=== PATIENT | female | born 1990 | race Two or more races ===

== ENCOUNTER 2018-11-17 18:49 | Emergency (ER) | payer SELFPAY ==
[2018-11-17 18:57] VITALS: BP 113/76
--- NOTE | 2018-11-17 19:17 | EDPHY ---
H & P Time Seen by Provider: 11/17/18 18:59 HPI/ROS: CHIEF COMPLAINT: Sore throat, URI symptoms x2 weeks HISTORY OF PRESENT ILLNESS: 28-year-old immunocompetent female complaining of URI symptoms, sore throat x2 weeks. She is in town for a conference. She has attempted [id number] remedies with mild improvement symptoms. She is complaining of sore throat, nasal congestion, nonproductive cough. Denies: Chest pain, back pain, abdominal pain, rash, intraoral lesions, chest pain, abdominal pain, nausea, vomiting, fever, chills, flu-like symptoms. PRIMARY CARE PROVIDER: REVIEW OF SYSTEMS: 10 systems reviewed and negative with the exception of the elements mentioned in the history of present illness PAST MEDICAL & SURGICAL HISTORY: No pertinent medical or surgical history SOCIAL HISTORY:Nonsmoker PHYSICAL EXAM (Prior to examination, patient consented to physical exam, hands were washed and my usual and customary physical exam procedures followed) 1) GENERAL: Well-developed, well-nourished, alert and oriented. Appears to be in no acute distress. 2) HEAD: Normocephalic, atraumatic 3) HEENT: Pupils equal, round, reactive to light bilaterally. Sclera anicteric. Nasopharynx, oropharynx, clear, no lesions. Moist Mucous membranes. No lesions. No Koplik's spots. Ears bilaterally with normal tympanic membranes. No evidence of otitis media otitis externa 4) NECK: Full range of motion, no meningeal signs. 5) LUNGS: Clear auscultation bilaterally, no wheezes, no rhonchi, no retractions. 6) HEART: Regular rate and rhythm, no murmur, no heave, no gallop. 7) ABDOMEN: No guarding, no rebound, no focal tenderness, negative McBurney's, negative Sung's, negative Rovsing's, negative peritoneal sign, 8) MUSCULOSKELETAL: Moving all extremities, no focal areas of tenderness, no obvious trauma. No peripheral edema or discoloration. 9) BACK: No CVA tenderness, no midline vertebral tenderness, no fluctuance, no step-off, no obvious trauma, no visual or palpable abnormality. 10) SKIN: No rash, no petechiae. 11) Psychiatric: Patient is oriented X 3, there is no agitation. DIFFERENTIAL DIAGNOSIS: In no particular order, my differential diagnosis includes, but is not limited to, strep pharyngitis, viral pharyngitis, peritonsillar abscess, retropharyngeal abscess or plegmon, mononucleosis, meningitis, Lemierre syndrome. Smoking Status: Never smoked Constitutional: Initial Vital Signs Temperature (C) 37 C 11/17/18 18:53 Heart Rate 81 11/17/18 18:53 Respiratory Rate 16 11/17/18 18:53 Blood Pressure 113/76 11/17/18 18:53 O2 Sat (%) 96 11/17/18 18:53 O2 Delivery Mode Room Air Allergies/Adverse Reactions: iv contrast dye Allergy (Uncoded 11/17/18 18:59) Home Medications: Medication Instructions Recorded Azithromycin [Zithromax] 500 mg PO DAILY #1 tablet 11/17/18 Benzonatate [Tessalon Pearles (RX)] 200 mg PO TID PRN #15 cap 11/17/18 Ipratropium 0.06% Nasal [Atrovent 2 sprays EACHNARE QID #1 mdi 11/17/18 0.06% Nasal (RX)] MDM/Departure - MDM ED Course/Re-evaluation: Given the longevity the patient's symptoms I think a trial of antibiotics is indicated at this time. Doubt epiglottitis. Doubt measles. Doubt deep space infection or peritonsillar abscess or phlegmon. I do not think that imaging studies indicated at this time. I Think the patient can be safely discharged. She feels comfortable being discharged. Patient feels comfortable being discharged. All questions and concerns addressed by myself. Patient given my usual and customary discharge precautions and instructions regarding their clinical impression. Care of patient under supervision of primary supervising physician Dr Kessler - Kaylene Disposition: Home, Routine, Self-Care Clinical Impression: Pharyngitis Qualifiers: Pharyngitis/tonsillitis etiology: unspecified etiology Qualified Code(s): J02.9 - Acute pharyngitis, unspecified Upper respiratory infection Qualifiers: URI type: unspecified URI Qualified Code(s): J06.9 - Acute upper respiratory infection, unspecified Condition: Good Instructions: Azithromycin (By mouth), Pharyngitis (ED), Upper Respiratory Infection (ED) Additional Instructions: . Return to the emergency department immediately for change in breathing habits , change in voice, change in swallowing habits, change in mental status, or any other symptoms that concern you. Prescriptions: Azithromycin [Zithromax] 500 mg PO DAILY #1 tablet Benzonatate [Tessalon Pearles (RX)] 200 mg PO TID PRN #15 cap PRN Reason: Cough, Moderate Ipratropium 0.06% Nasal [Atrovent 0.06% Nasal (RX)] 2 sprays EACHNARE QID #1 mdi Referrals: Nikolay Fuller MD [Medical Doctor] - As per Instructions
== END 2018-11-17 19:05 | disposition home or self-care (01) ==
DX: J02.9 Acute pharyngitis, unspecified (principal); J06.9 Acute upper respiratory infection, unspecified